=== PATIENT | female | born 1965 | race Caucasian/White ===

== ENCOUNTER 2017-01-30 10:01 | Emergency (ER) | payer BC ==
[~2017-01-30] VITALS: Ht 162.6 cm; Wt 60.3 kg
[~2017-01-30 10:01] MED LIST: SLEE25TA PO; ZANA4TAB PO; [UNRECOGNIZED DRUG - CODE] PO
[2017-01-30 10:03] VITALS: BP 148/62; PULSE 96; RESP 16; TEMP 97.8; O2SAT 100
== END 2017-01-30 12:00 | disposition left against medical advice (07) ==
LOC: PHED 10:01
DX: L03.211 Cellulitis of face (principal)
CPT/HCPCS: 99281